=== PATIENT | male | born 1990 | race Two or more races ===

== ENCOUNTER 2018-09-10 08:29 | Emergency (ER) | payer SELFPAY ==
[2018-09-10 08:37] VITALS: BP 126/62
[2018-09-10 10:00] LABS: ABSOLUTE BASOPHILS # (AUTO) 0.1 10^3/uL (0.0-0.2); ABSOLUTE EOSINOPHILS # (AUTO) 0.1 10^3/uL (0.0-0.6); ABSOLUTE LYMPHOCYTES (AUTO) 1.3 10^3/uL (0.5-4.7); ABSOLUTE MONOCYTES (AUTO) 0.5 10^3/uL (0.1-1.4); ABSOLUTE NEUT (AUTO) 3.9 10^3/uL (1.7-8.2); EOSINOPHILS % (AUTO) 1.7 % (0-6); HEMATOCRIT 51.4 % (37.9-51.0); HEMOGLOBIN 18.3 g/dL (13.5-17.0); LYMPHOCYTES % (AUTO) 21.5 % (13-45); MEAN CORPUSCULAR HEMOGLOBIN 32.3 pg (27.0-33.4); MEAN CORPUSCULAR HGB CONC 35.6 g/dL (32.0-36.0); MEAN CORPUSCULAR VOLUME 91 fl (80-97); MONOCYTES % (AUTO) 8.5 % (3-13); PLATELET COUNT 183 10^3/uL (150-450); RED BLOOD COUNT 5.66 10^6/uL (4.35-5.55); RED CELL DISTRIBUTION WIDTH 13.4 % (11.5-14.0); SEGMENTED NEUTROPHILS % (AUTO) 67.3 % (42-78); TOTAL CELLS COUNTED % (AUTO) 100 %; WHITE BLOOD COUNT 5.9 10^3/uL (4.0-10.5)
--- NOTE | 2018-09-10 10:12 | RADIOLOGY REPORT (SQ) ---
EXAM DESCRIPTION: CT FACIAL AREA WITHOUT COMPLETED DATE/TIME: 09/10/2018 9:53 am REASON FOR STUDY: Sinus pain/sneezing blood COMPARISON: None. TECHNIQUE: Noncontrast scanning through the paranasal sinuses using bone algorithm. Reconstructed MPR images reviewed. All images stored on PACS. All CT scanners at this facility use dose modulation, iterative reconstruction, and/or weight based d osing when appropriate to reduce radiation dose to as low as reasonably achievable (ALARA). [facility]: Dose Right [facility]: CareDose [facility]: Dose Right [facility]: Teradose 4D [facility]: Wanderlust RADIATION DOSE: CT Rad equipment meets quality standard of care and radiation dose reduction techniq ues were employed. CTDIvol: 30.4 mGy. DLP: 589 mGy-cm. mGy. LIMITATIONS: None. FINDINGS: SINUSES: Mucous membrane thickening throughout the paranasal sinuses. Marked mucous membr ane thickening with almost complete opacification of the right maxillary and right frontal sinuses an d extensive involvement of the right ethmoid air cells. NASAL CAVITY: Midline nasal septum. BONES: Normal mineralization. No fracture or bone lesion. ORBITS: Intact, symmetric globes. No retroorbital mass. TMJS: Normal. MASTOIDS: Clear. IACs symmetric, grossly normal. INFERIOR BRAIN: Limited view. No acute findings. OTHER: No other significant finding. IMPRESSION: EXTENSIVE SINUSITIS, WORSE ON THE RIGHT SIDE. TECHNICAL DOCUMENTATION: JOB ID: [id number] Quality ID # [id number]: Final reports with documentation of one or more dose reduction techniques (e.g., Au tomated exposure control, adjustment of the mA and/or kV according to patient size, use of iterative reconstruction technique) 2010 [employer]- All Rights Reserved Reading location - IP/workstation name: [email or web address]
[2018-09-10 10:20] LABS: PROTHROMBIN TIME 13.7 SEC (11.4-15.4)
[2018-09-10 10:27] LABS: ANION GAP 12 (5-19); BLOOD UREA NITROGEN 12 mg/dL (7-20); CARBON DIOXIDE 31 mmol/L (22-30); CHLORIDE 99 mmol/L (98-107); GLUCOSE 102 mg/dL (75-110); POTASSIUM 4.7 mmol/L (3.6-5.0); SODIUM 142.1 mmol/L (137-145)
--- NOTE | 2018-09-10 11:13 | ER Document Report ---
ED General - General Stated Complaint: SPITTING BLOOD Time Seen by Provider: 09/10/18 09:29 Notes: Chief complaint: Spitting blood History of complain:( obtained from----patient) 28 years old male presents today with sinus congestion pain over the facial sinuses for the last few days whenever he draw the nostrils through negative pressure he brings out blood for the last couple of days. Therefore concerned and came to the ED. Denies any fever chills or other constitutional symptoms. Onset: As above Duration: Last 2 days Severity: Moderate Quality: Sharp Context: Sinus infection Exacerbating factor and relieving factors: As described above REVIEW OF SYSTEMS: CONSTITUTIONAL : Denies fever, chills, or sweats. Denies recent illness. EENT: Denies eye, ear, throat, or mouth pain or symptoms. Denies nasal or sinus congestion or discharge. Denies throat, tongue, or mouth swelling or difficulty swallowing. CARDIOVASCULAR: Denies chest pain. Denies palpitations or racing or irregular heart beat. Denies ankle edema. RESPIRATORY: Denies cough, cold, or chest congestion. Denies shortness of breath, difficulty breathing, or wheezing. GASTROINTESTINAL: Denies distention. Denies nausea, vomiting, or diarrhea. Denies blood in vomitus, stools, or per rectum. Denies black, tarry stools. Denies constipation. GENITOURINARY: Denies difficulty urinating, painful urination, burning, frequency, blood in urine, or discharge. FEMALE GENITOURINARY: Denies vaginal bleeding, heavy or abnormal periods, irregular periods. Denies vaginal discharge or odor. MUSCULOSKELETAL: Denies back or neck pain or stiffness. Denies joint pain or swelling. SKIN: Denies rash, lesions or sores. HEMATOLOGIC : Denies easy bruising or bleeding. LYMPHATIC: Denies swollen, enlarged glands. NEUROLOGICAL: Denies confusion or altered mental status. Denies passing out or loss of consciousness. Denies dizziness or lightheadedness. Denies headache. Denies weakness or paralysis or loss of use of either side. Denies problems with gait or speech. Denies sensory loss, numbness, or tingling. Denies seizures. PSYCHIATRIC: Denies anxiety or stress. Denies depression, suicidal ideation, or homicidal ideation. ALL OTHER SYSTEMS REVIEWED AND NEGATIVE. PHYSICAL EXAMINATION: GENERAL: Well-appearing, well-nourished and in no acute distress. HEAD: Atraumatic, normocephalic. EYES: Pupils equal round and reactive to light, extraocular movements intact, conjunctiva are normal. ENT: Diffuse sinus tenderness noted over the frontal and maxillary sinuses on both sides Nares patent, oropharynx clear without exudates. Moist mucous membranes. NECK: Normal range of motion, supple without lymphadenopathy LUNGS: Breath sounds clear to auscultation bilaterally and equal. No wheezes rales or rhonchi. HEART: Regular rate and rhythm without murmurs ABDOMEN: Soft, nontender, nondistended abdomen. No guarding, no rebound. No masses appreciated. Examination of genitals-deferred Musculoskeletal: Normal range of motion, no pitting or edema. No cyanosis. NEUROLOGICAL: Cranial nerves grossly intact. Normal speech, normal gait. Normal sensory, motor exams PSYCH: Normal mood, normal affect. SKIN: Warm, Dry, normal turgor, no rashes or lesions noted. Dictation was performed using [employer] voice recognition software TRAVEL OUTSIDE OF THE [place] IN LAST 30 DAYS: No - HPI Notes: Dictated - Related Data Allergies/Adverse Reactions: No Known Allergies Allergy (Verified 09/10/18 08:35) Past Medical History - Social History Smoking Status: Never Smoker Chew tobacco use (# tins/day): No Frequency of alcohol use: Social Drug Abuse: None Lives with: Family Family History: Reviewed & Not Pertinent Patient has suicidal ideation: No Patient has homicidal ideation: No Renal/ Medical History: Denies: Hx Peritoneal Dialysis Past Surgical History: Reports: Hx Cardiac Surgery Review of Systems - Review of Systems Notes: Dictated Physical Exam - Vital signs Vitals: Temp Pulse Resp BP Pulse Ox 98.0 F 57 L 15 126/62 H 97 09/10/18 08:36 09/10/18 08:36 09/10/18 08:36 09/10/18 08:36 09/10/18 08:36 - Notes Notes: Dictated Course - Vital Signs Vital signs: Temp Pulse Resp BP Pulse Ox 98.0 F 57 L 15 126/62 H 97 09/10/18 08:36 09/10/18 08:36 09/10/18 08:36 09/10/18 08:36 09/10/18 08:36 - Laboratory Result Diagrams: 09/10/18 09:43 09/10/18 09:43 Laboratory results interpreted by me: 09/10/18 09/10/18 09:43 09:43 RBC 5.66 H Hgb 18.3 H Hct 51.4 H Carbon Dioxide 31 H - Diagnostic Test Radiology reviewed: Reports reviewed - CT of the sinuses reported by radiologist diffuse sinusitis Discharge - Discharge Clinical Impression: Sinusitis, acute Qualifiers: Sinusitis location: pansinusitis Recurrence: recurrent Qualified Code(s): J01.41 - Acute recurrent pansinusitis Condition: Fair Disposition: HOME, SELF-CARE Instructions: Sinusitis ([facility]) Prescriptions: Amox Tr/Potassium Clavulanate [Augmentin 875-125 Tablet] 1 tab PO BID 10 Days tablet
== END 2018-09-10 11:21 | disposition home or self-care (01) ==
LOC: ER 08:29
DX: J01.41 Acute recurrent pansinusitis (principal); R04.2 Hemoptysis; R09.81 Nasal congestion
CPT/HCPCS: 36415; 70486; 80048; 85025; 85610; 99284